=== PATIENT | female | born 1940 | race Caucasian/White ===

== ENCOUNTER 2024-02-23 09:32 | Outpatient (RCR) | payer MEDICARE, SELFPAY | END 2024-03-18 23:59 | LOC: NS 09:32 | PROVIDERS: PCP Family Medicine; Referring Provider Family Medicine; Visit Provider Family Medicine | DX: Z71.3 Dietary counseling and surveillance (principal); E11.9 Type 2 diabetes mellitus without complications | CPT/HCPCS: 97802 ==

== ENCOUNTER 2024-03-21 09:29 | Outpatient (RCR) | payer MEDICARE, SELFPAY | END 2024-04-15 23:59 | LOC: NS 09:29 | PROVIDERS: PCP Family Medicine; Referring Provider Family Medicine; Visit Provider Family Medicine | DX: Z71.3 Dietary counseling and surveillance (principal); E11.9 Type 2 diabetes mellitus without complications | CPT/HCPCS: 97803 ==

== ENCOUNTER 2024-06-27 10:00 | Outpatient (RCR) | payer MEDICARE, SELFPAY | END 2024-07-16 23:59 | LOC: NS 10:00 | PROVIDERS: PCP Family Medicine; Referring Provider Family Medicine; Visit Provider Family Medicine | DX: Z71.3 Dietary counseling and surveillance (principal); E11.9 Type 2 diabetes mellitus without complications | CPT/HCPCS: 97803 ==

== ENCOUNTER 2024-10-24 09:43 | Outpatient (RCR) | payer MEDICARE, SELFPAY | END 2024-11-15 23:59 | LOC: NS 09:43 | PROVIDERS: PCP Family Medicine; Referring Provider Family Medicine; Visit Provider Family Medicine | DX: E11.9 Type 2 diabetes mellitus without complications (principal) | CPT/HCPCS: 97803 ==